=== PATIENT | female | born 1955 | race Asian ===

== ENCOUNTER 2018-03-06 16:27 | Emergency (ER) | payer OTHER ==
[2018-03-06 16:58] VITALS: BP 148/73; PULSE 75; RESP 16; TEMP 99; O2SAT 99
--- NOTE | 2018-03-06 17:21 | RADRPT ---
EXAM DATE/TIME: 03/06/2018 17:11 [place] COMPARISON: No previous studies available for comparison. INDICATIONS : Cough and chest pain. MEDICAL HISTORY : None. SURGICAL HISTORY : None. ENCOUNTER: Initial ACUITY: 1 day PAIN SCORE: 7/10 LOCATION: middle chest. FINDINGS: PA and lateral views of the chest demonstrate the lungs to be symmetrically aerated without evidence of mass, infiltrate or effusion. The cardiomediastinal contours are unremarkable. Osseous structure s are intact. CONCLUSION: No acute disease. Cornelius Yap MD FACR on March 06, 2018 at 17:19 Board Certified Radiologist. This report was verified electronically.
[2018-03-06 18:21] LABS: AUTOMATED NEUTROPHIL # 10.7 TH/MM3 (1.8-7.7); BASOPHIL % 0.3 % (0.0-2.0); EOSINOPHIL % 0.1 % (0.0-4.0); HEMATOCRIT 41.8 % (35.0-46.0); HEMOGLOBIN 14.4 GM/DL (11.6-15.3); LYMPH % 8.9 % (9.0-44.0); LYMPHOCYTE # 1.1 TH/MM3 (1.0-4.8); MEAN CELL VOLUME 94.8 FL (80.0-100.0); MEAN CORPUSCULAR HEMOGLOBIN 32.7 PG (27.0-34.0); MEAN CORPUSCULAR HGB CONC 34.5 % (32.0-36.0); MEAN PLATELET VOLUME 9.2 FL (7.0-11.0); MONO % 4.2 % (0.0-8.0); MONOCYTE # 0.5 TH/MM3 (0-0.9); NEUT % 86.5 % (16.0-70.0); PLATELET COUNT 170 TH/MM3 (150-450); RED BLOOD COUNT 4.41 MIL/MM3 (4.00-5.30); RED CELL DISTRIBUTION WIDTH 12.9 % (11.6-17.2); WHITE BLOOD COUNT 12.3 TH/MM3 (4.0-11.0)
[2018-03-06 18:24] LABS: PROTHROMBIN TIME - PATIENT 9.8 SEC (9.8-11.6)
[2018-03-06 18:25] LABS: BICARBONATE 26.7 MEQ/L (21.0-32.0); BLOOD UREA NITROGEN 12 MG/DL (7-18); CALCIUM 8.5 MG/DL (8.5-10.1); CHLORIDE 104 MEQ/L (98-107); CREATININE 0.99 MG/DL (0.50-1.00); GLOMERULAR FILTRATION RATE 57 ML/MIN (>89); GLUCOSE,RANDOM 115 MG/DL (74-106); SODIUM (NA) 136 MEQ/L (136-145)
[2018-03-06 18:29] LABS: TROPONIN I LESS THAN 0.02 NG/ML (0.02-0.05)
--- NOTE | 2018-03-06 19:12 | PD ---
HPI Chief Complaint: General Weakness Time Seen by Provider: 18:56 Travel History International Travel<30 days: No Contact w/Intl Traveler<30days: No Traveled to known affect area: No History of Present Illness HPI 62-year-old female complains of headache, body ache, mild dry cough, nausea and dizziness and epigastric pain. Patient states that his symptoms started this morning. Patient states that headache and mild aching headache diffuse over the head. Patient denies any visual change. Patient denies earache sore throat. Patient denies any neck pain. Patient denies any chest pain or shortness of breath. Patient states that she has chronic dry cough and is not new. Patient states that she has burning sensation around epigastric area with nausea intermittently since this morning. Patient denies any dysuria frequency. Patient denies any vaginal discharge or bleeding. Patient complained of dizziness. Patient complained of chills. Patient states that she has no low-grade fever at home. PFSH Social History Tobacco Use: No Allergies-Medications (Allergen,Severity, Reaction): Coded Allergies: No Known Allergies (Unverified , 03/06/18) Reported Meds & Prescriptions Reported Meds & Active Scripts Active Meclizine (Meclizine HCl) 25 Mg Tab 25 Mg PO TID PRN Zofran Odt (Ondansetron Odt) 4 Mg Tab 4 Mg SL Q6HR PRN Protonix (Pantoprazole Sodium) 20 Mg Tab 20 Mg PO DAILY Review of Systems General / Constitutional: No: Fever Eyes: No: Visual changes HENT: Positive: Headaches, Lightheadedness Cardiovascular: No: Chest Pain or Discomfort Respiratory: Positive: Cough, No: Shortness of Breath Gastrointestinal: Positive: Nausea, Abdominal Pain Genitourinary: No: Dysuria Musculoskeletal: No: Pain Skin: No Rash Neurologic: No: Weakness Psychiatric: No: Depression Endocrine: No: Polydipsia Hematologic/Lymphatic: No: Easy Bruising Physical Exam Narrative GENERAL: Well-nourished, well-developed patient. SKIN: Focused skin assessment warm/dry. HEAD: Normocephalic. EYES: No scleral icterus. No injection or drainage. Throat: Nonerythematous. NECK: Supple, trachea midline. No JVD or lymphadenopathy. No meningismus. CARDIOVASCULAR: Regular rate and rhythm without murmurs, gallops, or rubs. RESPIRATORY: Breath sounds equal bilaterally. No accessory muscle use. GASTROINTESTINAL: Abdomen soft, non-tender, nondistended. MUSCULOSKELETAL: No cyanosis, or edema. BACK: Nontender without obvious deformity. No CVA tenderness. Neurologic exam normal. Data Data Last Documented VS Vital Signs Date Time Temp Pulse Resp B/P (MAP) Pulse Ox O2 Delivery O2 Flow Rate FiO2 03/06/18 19:29 (98) 03/06/18 19:23 20 98 Room Air 03/06/18 16:58 99.0 75 Orders Orders Electrocardiogram (03/06/18 17:00) Complete Blood Count With Diff (03/06/18 17:00) Basic Metabolic Panel (Bmp) (03/06/18 17:00) Ckmb (Isoenzyme) Profile (03/06/18 17:00) Troponin I (03/06/18 17:00) Iv Access Insert/Monitor (03/06/18 17:00) Ecg Monitoring (03/06/18 17:00) Oxygen Administration (03/06/18 17:00) Oximetry (03/06/18 17:00) Chest, Pa & Lat (03/06/18 ) Lipase (03/06/18 17:00) Act Partial Throm Time (Ptt) (03/06/18 17:00) Prothrombin Time / Inr (Pt) (03/06/18 17:00) Meclizine (Antivert) (03/06/18 19:30) Ondansetron Odt (Zofran Odt) (03/06/18 19:30) Ed Discharge Order (03/06/18 19:25) Labs Laboratory Tests Test 03/06/18 17:35 White Blood Count 12.3 TH/MM3 Red Blood Count 4.41 MIL/MM3 Hemoglobin 14.4 GM/DL Hematocrit 41.8 % Mean Corpuscular Volume 94.8 FL Mean Corpuscular Hemoglobin 32.7 PG Mean Corpuscular Hemoglobin Concent 34.5 % Red Cell Distribution Width 12.9 % Platelet Count 170 TH/MM3 Mean Platelet Volume 9.2 FL Neutrophils (%) (Auto) 86.5 % Lymphocytes (%) (Auto) 8.9 % Monocytes (%) (Auto) 4.2 % Eosinophils (%) (Auto) 0.1 % Basophils (%) (Auto) 0.3 % Neutrophils # (Auto) 10.7 TH/MM3 Lymphocytes # (Auto) 1.1 TH/MM3 Monocytes # (Auto) 0.5 TH/MM3 Eosinophils # (Auto) 0.0 TH/MM3 Basophils # (Auto) 0.0 TH/MM3 CBC Comment DIFF FINAL Differential Comment Prothrombin Time 9.8 SEC Prothromb Time International Ratio 1.0 RATIO Activated Partial Thromboplast Time 27.6 SEC Blood Urea Nitrogen 12 MG/DL Creatinine 0.99 MG/DL Random Glucose 115 MG/DL Calcium Level 8.5 MG/DL Sodium Level 136 MEQ/L Potassium Level 3.8 MEQ/L Chloride Level 104 MEQ/L Carbon Dioxide Level 26.7 MEQ/L Anion Gap 5 MEQ/L Estimat Glomerular Filtration Rate 57 ML/MIN Total Creatine Kinase 63 U/L Troponin I LESS THAN 0.02 NG/ML Lipase 89 U/L MDM Medical Decision Making Medical Screen Exam Complete: Yes Emergency Medical Condition: Yes Interpretation(s) Last Impressions Chest X-Ray 03/06/18 0000 Signed Impressions: Service Date/Time: Tuesday, March 06, 2018 17:11 - CONCLUSION: No acute disease. Cornelius Yap MD FACR Differential Diagnosis Differential diagnosis including viral syndrome, cluster headache, bronchitis, pneumonia, gastritis, gastroenteritis, UTI, pyelonephritis, electrolyte imbalance. Narrative Course 62-year-old female with headache, abdominal pain, nausea, dizziness and body ache. Meclizine 25 mg p.o. given. Zofran 4 mg ODT given. Diagnosis Primary Impression: Viral syndrome Patient Instructions: General Instructions Additional Instructions: Take medications as directed. Tylenol for fever. Encourage p.o. fluid. Follow -up with personal physician. Return if persistent problem or worse. Med/Other Pt SpecificInfo: Prescription(s) given Scripts Meclizine (Meclizine) 25 Mg Tab 25 MG PO TID Y for DIZZINESS, #21 TAB 0 Refills Prov: Fawad Torres MD 03/06/18 Ondansetron Odt (Zofran Odt) 4 Mg Tab 4 MG SL Q6HR Y for Nausea/Vomiting, #10 TAB 0 Refills Prov: Fawad Torres MD 03/06/18 Pantoprazole (Protonix) 20 Mg Tab 20 MG PO DAILY for Reflux, #10 TAB 0 Refills Prov: Fawad Torres MD 03/06/18 Disposition: 01 DISCHARGE HOME Condition: Stable Fawad Torres MD Mar 06, 2018 19:12
[2018-03-06 19:23] VITALS: RESP 20; O2SAT 98
[2018-03-06] MEDS ORDERED: PANT20 PO (19:25)
[2018-03-06] MEDS ORDERED: MECL-62 PO (19:25)
[2018-03-06] MEDS ORDERED: ZOFR4TAB3 SL (19:25)
[2018-03-06] MEDS ORDERED: ONDANSETRON ODT 4 MG TAB PO ONE (19:30)
[2018-03-06] MEDS ORDERED: MECLIZINE HCL 25 MG TAB PO ONE (19:30)
--- NOTE | 2018-03-07 16:44 | EKG ---
Date Performed: 03/06/2018 Time Performed: 17:30:42 PTAGE: 62 years EKG: Sinus rhythm NORMAL ECG NO PREVIOUS TRACING DOCTOR: Shreyas Michel Interpretating Date/Time 03/07/2018 16:45:57
== END 2018-03-06 20:09 | disposition home or self-care (01) ==
LOC: NEPC 16:27
DX: B34.9 Viral infection, unspecified (principal); R10.13 Epigastric pain
CPT/HCPCS: 71046; 80048; 82550; 83690; 84484; 85025; 85610; 85730; 93005